=== PATIENT | female | born 1935 | race Caucasian/White ===

== ENCOUNTER → 2017-01-31 | Outpatient (CLI) | payer MEDICARE, OTHER ==
--- NOTE | 2017-02-16 11:40 | RSPPFT ---
DATE OF PROCEDURE: 01/31/17 COMMENTS: VOLUMES DYNAMIC: FVC mildly reduced; FEV1 low normal. STATIC: TLC and FRC normal; RV mildly reduced. FLOWS: FEV1% normal; FEF 25-75 normal. DIFFUSION: Low normal. FLOW VOLUME LOOP: Low peak flow but post-bronchodilator study is otherwise a normal configuration. IMPRESSION: Although there is significant improvement post-bronchodilator, there does not appear to be significant airways obstruction even on the pre-bronchodilator study. The reduction in residual volume could be weight related and the total lung capacity is normal. Diffusion capacity is also normal. Clinical correlation is required.
== END ==
LOC: PHRSP 10:05
PROVIDERS: ATTEND Internal Medicine
DX: R06.02 Shortness of breath (principal)
CPT/HCPCS: 94060; 94620; 94726; 94729